=== PATIENT | female | born 2000 | race Caucasian/White ===

== ENCOUNTER → 2023-07-12 | Outpatient (CLI) | payer BC ==
[2023-07-12 16:00] LABS: Basophils # (A) 0.03 X 10*3/uL (0.00-0.10); Basophils % (A) 0.6 %; Eosinophils # (A) 0.03 X 10*3/uL (0.04-0.35); Eosinophils % (A) 0.6 %; HCT 41.9 % (37.2-46.3); HGB 14.2 g/dL (12.0-15.0); Lymphocytes # (A) 1.57 X 10*3/uL (0.90-5.00); Lymphocytes % (A) 32.4 %; MCH 30.6 pg (27.0-32.0); MCHC 33.9 g/dL (32.0-37.0); MCV 90.3 FL (80.0-97.0); Mean Platelet Volume 9.9 FL (9.5-12.2); Monocytes # (A) 0.28 X 10*3/uL (0.20-1.00); Monocytes % (A) 5.8 %; NRBC Per 100 WBC 0 X 10*3/uL (0.00-0.01); Neutrophils # (A) 2.92 X 10*3/uL (1.80-7.70); Neutrophils % (A) 60.4 %; Platelet Count 363 X 10*3/uL (140-440); RBC 4.64 X 10*6/uL (4.10-5.20); RDW 12.4 % (11.5-14.5); WBC 4.84 X 10*3/uL (4.50-10.00)
[2023-07-12 16:22] LABS: ALT 13 U/L (8-44); AST 16 U/L (13-35); Albumin 4.7 g/dL (3.8-4.9); Albumin/Globulin Ratio 1.81 Ratio (1.60-3.17); Alkaline Phosphatase 82 U/L (41-126); BUN/Creat Ratio 8.44 Ratio (12.00-20.00); Blood Urea Nitrogen 7.6 mg/dL (9.0-27.0); Calcium 9.9 mg/dL (8.7-10.3); Carbon Dioxide 23.8 mmol/L (21.6-31.8); Chloride 104 mmol/L (96-109); Chol/HDL Ratio 3.64 Ratio; Globulin 2.6 g/dL (1.6-3.3); Glucose 83 mg/dL (70-110); LDL Cholesterol,Calculated 122.2 mg/dL (0.0-131.0); Potassium 4.3 mmol/L (3.5-5.5); Sodium 140 mmol/L (135-145); Total Bilirubin 0.5 mg/dL (0.3-1.2); Total Protein 7.3 g/dL (6.2-8.2)
== END | disposition home or self-care (01) ==
LOC: LABWHC1 11:38
PROVIDERS: ATTEND Internal Medicine
DX: Z00.00 Encounter for general adult medical examination without abnormal findings (principal); Z11.59 Encounter for screening for other viral diseases
CPT/HCPCS: 36415; 80053; 80061; 84443; 85025; 86803

== ENCOUNTER → 2023-11-02 | Outpatient (CLI) | payer BC ==
[2023-11-02 10:38] VITALS: BP 107/74; PULSE 79; RESP 16; TEMP 98.2
--- NOTE | 2023-11-02 11:26 | P.HPOB ---
History of Present Illness H&P Date: 11/02/23 Chief Complaint: The patient is here for her routine gynecologic exam and for control This is a 23-year-old G0 with an LMP of 09/28/23. The patient is here to establish with this office. Her last pelvic exam was in 2017. He has been on oral contraception for about 3 months and got her prescription through [facility]. She has been taking the control pills in a semicontinuous fashion and does not have menstrual periods when she skips the inactive pills. She has a history of regular menstrual periods that are heavy when she is off of control pills. She is not sexually active. She is not interested in getting at this time. Review of Systems The patient has lost 15 pounds over the last year. She was previously on a GLP- 1 injection for weight loss. This was stopped after there was a known shortage for the medication. She denies respiratory, cardiac, or G.I. problems. 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 PAST [employer] HISTORY: She has no history of STDs. History of Any Multi-Drug Resistant Organisms: None Reported Past Surgical History: No Surgical Hx Reported Past Anesthesia/Blood Transfusion Reactions: No Reported Reaction Past Psychological History: No Psychological Hx Reported Smoking Status: Never smoker Past Alcohol Use History: Occasional (3-4 drinks per month.) Past Drug Use History: None Reported Additional History: She is single and works in [employer] from her home. - Past Family History Father Family Medical History: Coronary Artery Disease (CAD), Hypertension Mother Family Medical History: No Reported History Additional Family Medical History / Comment(s): Maternal grandfather had an [place]. Medications and Allergies Home Medications Medication Instructions Recorded Confirmed Type Fexofenadine/Pseudoephedrine 1 tab PO DAILY 11/02/23 11/02/23 History [Corrina-D 24 Hour Tablet] Montelukast Sodium 10 mg PO DAILY 11/02/23 11/02/23 History Olopatadine HCl [Pataday Once 1 drop BOTH EYES DAILY 11/02/23 11/02/23 History Daily Relief] Prednisolone Acetate/Pf 1 drop BOTH EYES DAILY 11/02/23 11/02/23 History [Prednisolone Acet 1% Eye Drop] norgestimate-ethinyl estradioL 1 tab PO DAILY 11/02/23 11/02/23 History [Sarah 0.25-0.035 mg Tablet] Allergies Allergy/AdvReac Type Severity Reaction Status Date / Time Sulfa (Sulfonamide Allergy Rash/Hives Verified 11/02/23 10:04 Antibiotics) Exam Vital Signs Temp Pulse Resp BP Pulse Ox 11/02/23 10:18 98.2 F 79 16 107/74 99 Intake and Output 11/01/23 11/02/23 11/02/23 22:59 06:59 14:59 Other: Weight 89.811 kg Height 5 feet 7 inches, weight 198 pounds, BMI 31.0. This is a well-developed well-nourished white female who is alert and oriented times 3 in no acute distress. HEENT: Within normal limits. NECK: Supple without mass or thyromegaly. CHEST AND LUNGS: Clear to auscultation. HEART: Regular rate and rhythm. BREASTS: Are without mass or discharge. AXILLARY EXAM: Negative for adenopathy. BACK: Negative for CVA tenderness. ABDOMEN: Soft, nontender, without palpable masses. PELVIC EXAM: Normal external genitalia. Cervix and vagina appear normal. There is no unusual discharge. There is a small amount of mucus at the cervix. there is no evidence of prolapse. The uterus is midposition, nongravid size and nontender. There are no palpable adnexal masses or tenderness. RECTAL EXAM: Deferred. EXTREMITIES: Nontender. IMPRESSION: 1. 23-year-old female on oral contraception with normal gynecologic exam. 2. The patient takes oral contraception in a semicontinuous fashion because of her history of hypermenorrhea. 3. The patient had previously taken Zepbound, a GLP-1 weight loss medication, but discontinued it because it was in short supply. PLAN: 1. Pap smear, cytology only, was obtained. 2. Self breast awareness was discussed with the patient. We have also discussed symptoms associated with inflammatory breast cancer. 3. GC and Chlamydia screening was obtained from the cervix. 4. We had a long discussion regarding oral contraception. We have discussed possible side effects. We have discussed the slight increased risk for blood clots. We have also discussed possible interaction with Zepbound, the GLP-1 medication that she took for weight loss. She understands that gastric emptying is delayed with this medication and that can affect absorption of oral contraception and possibly make it less effective. She states she has been using condoms and withdrawal as well for control. She is not sure if she will go back on the is Zebound medication. 5. STD prevention was discussed. I have stressed the importance of limiting sexual partners and I recommended condom use if she is sexually active. 6. Weight control was discussed. I have stressed the importance of good nutrition, regular meals, adequate fiber, and regular exercise. 7. She will continue on Sprintec and if she plans on continuing to use it semicontinuously, I have recommended that she take the inactive pills at least every 3 to 4 months to have a menstrual period. The electronic prescription will be sent to [facility] in [place]. 8. She was advised to return in one year for her annual well woman exam.
[2023-11-03 13:17] LABS: C. trachomatis,PCR Negative (Negative)
[2023-11-03 13:22] LABS: N. gonorrhoeae,PCR Negative (Negative)
== END ==
LOC: WWCWWP 09:44
PROVIDERS: ATTEND Obstetrics & Gynecology
DX: Z01.419 Encounter for gynecological examination (general) (routine) without abnormal findings (principal); Z11.3 Encounter for screening for infections with a predominantly sexual mode of transmission; N92.0 Excessive and frequent menstruation with regular cycle; F17.200 Nicotine dependence, unspecified, uncomplicated; Z88.2 Allergy status to sulfonamides
CPT/HCPCS: 87491; 87591